=== PATIENT | male | born 2000 | race Caucasian/White ===

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

== ENCOUNTER 2020-09-10 15:23 | Emergency (ER) | payer MEDICAID, SELFPAY ==
[2020-09-10 15:24] VITALS: BP 131/69; PULSE 86; RESP 18; TEMP 36.6; O2SAT 98; BMI 38.9
--- NOTE | 2020-09-10 15:30 | RAD_ITS ---
STUDY: X-RAY - THORACIC SPINE REASON FOR EXAM: Male, 20 years old. back pain TECHNIQUE: 3 view(s) of the thoracic spine were obtained. COMPARISON: None. FINDINGS: Normal kyphosis of the thoracic spine. There is no substantial scoliosis. Normal thoracic vertebrae and endplates. Normal disc space heights. The soft tissue structures are unremarkable. RAD/Thoracic Spine 3 Views IMPRESSION: Normal x-ray examination of the thoracic spine. Electronically Signed: Roman Mack MD at 15:48 EDT Tel , Service support ,
--- NOTE | 2020-09-10 17:28 | EDS_ITS ---
HPI History of Present Illness Chief Complaint: Back Informant: patient Narrative Narrative: Patient states that last evening he stretched in bed. And he had some pain on the right side of his posterior chest. If he stays still is not that bad. But if he moves or twists it hurts. No numbness or tingling. No headache. No trouble breathing. No pleuritic pain. No cough. His only travel in the last 4 or so months is to [facility]. He took one trip there about 2 months ago. He is never had leg pain or swelling. No family history of DVT or PE. No rashes. PFSH PFSH Home Medications albuterol sulfate 2.5 mg INHALATION Q4H PRN PRN #25 vial 07/20/18 [Rx Last Taken Unknown] albuterol sulfate [Proair Hfa (SP)Vent Pts] 1 - 2 puff INHALATION Q4H PRN PRN 07/20/18 [History Last Taken Unknown] prednisone 20 mg PO BID #10 tab 07/20/18 [Rx Last Taken Unknown] naproxen [Naprosyn] 500 mg PO BID PRN #20 tab 09/10/20 [Rx Last Taken Unknown] Allergy/AdvReac Type Severity Reaction Status Date / Time No Known Allergies Allergy Verified 09/10/20 15:27 Social History Smoking Status: Never smoker ROS ROS ED Constitutional Constitutional ED: Denies chills or fever(s) ENT ENT ED: Denies ear pain, rhinorrhea or sore throat Cardiovascular Cardiovascular: Reports chest pain; Denies palpitations or racing heartbeat Respiratory/Chest Respiratory/Chest: Denies dyspnea, dyspnea on exertion or sputum Gastrointestinal Gastrointestinal: Denies abdominal pain, nausea or vomiting Genitourinary Genitourinary ED: Denies hematuria Musculoskeletal Musculoskeletal: Reports back pain; Denies neck pain Integumentary Denies rash Neurologic Neurologic: Denies headache(s), paresthesias or weakness Allergic/Immunologic Allergic/Immunologic ED: Denies urticaria EXAM Physical Exam Const Vital Signs: 09/10/20 15:24 Temperature 97.8 F Temperature Source Temporal Pulse Rate 86 Respiratory Rate 18 Blood Pressure 131/69 H Blood Pressure Mean 89 Pulse Ox 98 Oxygen Delivery Method Room Air Positive well nourished and well developed Constitutional Narrative: Patient is sitting quietly in bed. He is comfortable. General Appearance ED: well developed and NAD HEENT Negative for trauma or tenderness Eyes PERRL Neck no lymphadenopathy and supple Resp normal respiratory effort and No clear to auscultation bilaterally Resp Narrative: Patient's lungs are clear. No pleuritic component. If he moves or twist he has reproduction of pain. Putting his right arm up in the air and twisting his right shoulder forward into his left side reproduces the pain the most. He also has tenderness with palpation along the right paraspinal muscles. Cardio regular rate, regular rhythm and no murmurs GI normal to inspection, nondistended, normoactive bowel sounds, soft to palpation and non-tender Back/Spine normal to inspection General Back: Negative for CVA tenderness Thoracic Spine / Upper Back: paraspinal muscle tenderness Extremity normal to inspection General Extremety ED: Negative for edema or tenderness General Extremity: Negative for edema Psych mental status grossly normal Skin no rashes or lesions noted MDM MDM MDM Narrative Medical decision making narrative: Patient had x-ray of thoracic spine done prior to me seeing him. This is normal. His exam is consistent with a musculoskeletal strain. He is PERC negative. We will get him on nonsteroidals. We discussed the multiple reasons to return including dyspnea cough, hemoptysis, fevers, numbness tingling Radiography Diagnostic Testing: Radiology Impression Thoracic Spine X-Ray 09/10/20 15:30 IMPRESSION: Normal x-ray examination of the thoracic spine. Electronically Signed: Roman Mack MD at 15:48 EDT Tel , Service support , Discharge Plan Triage Chief Complaint: Back ED Provider: Sincere Flores Dx/Rx/DC Orders Clinical Impression: Thoracic myofascial strain Instructions: ED Thoracic Spine Strain Prescriptions: New naproxen [Naprosyn] 500 mg tablet 500 mg PO BID PRN (Reason: pain) Qty: 20 RF: 0 No Action albuterol sulfate [ProAir HFA] 1 PUFF inhaler 1 - 2 puff inhalation Q4H PRN PRN (Reason: Shortness Of Breath) RF: 0 albuterol sulfate 2.5 MG/3 ML solution for nebulization 2.5 mg inhalation Q4H PRN PRN (Reason: Wheezing) Qty: 25 RF: 0 prednisone 20 MG tablet 20 mg PO BID Qty: 10 RF: 0 Primary Care Provider: Froilan Moreno Referrals: Froilan Moreno MD [Primary Care Provider] - 3-5 Days if not improving Disposition Disposition: Home, Self Care
== END 2020-09-10 17:45 | disposition home or self-care (01) ==
PROVIDERS: Emergency Provider Emergency Medicine; PCP Family Medicine
DX: S29.012A Strain of muscle and tendon of back wall of thorax, initial encounter (principal); X58.XXXA Exposure to other specified factors, initial encounter; Y93.89 Activity, other specified; Y92.9 Unspecified place or not applicable; Y99.8 Other external cause status
CPT/HCPCS: 72072; 99282

== ENCOUNTER 2022-08-30 15:58 | Emergency (ER) | payer MEDICAID, SELFPAY ==
[2022-08-30 15:59] VITALS: BP 168/104; PULSE 102; RESP 16; TEMP 36.9; O2SAT 100
--- NOTE | 2022-08-30 16:17 | ED.VIS.DENTA ---
HPI History of Present Illness Chief Complaint: Dental Informant: patient Narrative Narrative: Patient complains of right upper dental pain. Patient states that he had multiple fillings done about 3 weeks ago. He was good for about 2 weeks and now he is having pain. All his pain is in the right upper jaw. No swelling. He does not think he has had a fever but he has felt hot at times. No trouble swallowing. No chest pain or neck pain. He has tried some ibuprofen. He called the dentist that did the work and he has an appointment on the PFS PFS Medical History no medical history Home Medications albuterol sulfate 2.5 mg/3 mL (0.083 %) solution for nebulization 2.5 mg (3 mL) inhalation Q4H PRN PRN Wheezing #25 vials 07/20/18 [Rx Last Taken Unknown] albuterol sulfate 90 mcg/actuation aerosol inhaler (ProAir HFA) 1 - 2 puff inhalation Q4H PRN PRN Shortness Of Breath 07/20/18 [History Last Taken Unknown] prednisone 20 mg tablet 20 mg PO BID #10 tabs 07/20/18 [Rx Last Taken Unknown] naproxen 500 mg tablet (Naprosyn) 500 mg PO BID PRN pain #20 tabs 09/10/20 [Rx Last Taken Unknown] naproxen 500 mg tablet 500 mg PO BID #20 tabs 08/30/22 [Rx Last Taken Unknown] penicillin V potassium 500 mg tablet 500 mg PO 4X/DAY #40 tabs 08/30/22 [Rx Last Taken Unknown] Allergy/AdvReac Type Severity Reaction Status Date / Time No Known Allergies Allergy Verified 08/30/22 16:01 Social History Smoking Status: Never smoker ROS ROS ED Constitutional Constitutional ED: Reports subjective Eyes Eyes: Denies blurry vision ENT ENT ED: Reports other Details: See history of present illness. ; Denies ear pain, rhinorrhea or sore throat Cardiovascular Cardiovascular: Denies chest pain Respiratory/Chest Respiratory/Chest: Denies cough or dyspnea Gastrointestinal Gastrointestinal: Denies nausea or vomiting Musculoskeletal Musculoskeletal: Denies neck pain Integumentary Denies rash Neurologic Neurologic: Denies headache(s) Psychiatric Psychiatric: Reports anxiety and depression Hematologic/Lymphatic Hematologic/Lymphatic: Denies easy bleeding or easy bruising Allergic/Immunologic Allergic/Immunologic ED: Denies urticaria EXAM Physical Exam Narrative Exam Narrative: Patient is awake alert no acute distress sitting comfortably in the bed. Carries on normal conversation. HEENT shows no external erythema swelling or rash. No sinus tenderness. Nasal passages are clear. He has some newer cavities that have been filled. There is mild tenderness of several teeth in the upper jaw. Minimal swelling of the gums but no notable erythema or drainage. No abscess. No sign of Ludewig's angina. Lower jaw floor of the mouth are soft nontender. Neck shows no lymphadenopathy or swelling Lungs are clear bilaterally. Heart is regular. I hear no murmur at all. Distal pulses are normal. Const Vital Signs: 08/30/22 15:59 Temperature 98.5 F Temperature Source Temporal Pulse Rate 102 H Respiratory Rate 16 Blood Pressure 168/104 H Blood Pressure Mean 125 Pulse Ox 100 Oxygen Delivery Method Room Air MDM MDM MDM Narrative Medical decision making narrative: Patient is having pain and its developed a couple weeks after fillings. This may be just a inflammatory response. But I cannot rule out infection. I will start him on antibiotics nonsteroidals until he is seen in approximately 9 days. If he develops swelling pain drainage trouble swallowing he should return. Discharge Plan Triage Chief Complaint: Dental ED Provider: Sincere Flores Dx/Rx/DC Orders Clinical Impression: Pain, dental Instructions: ED Dental Pain Prescriptions: New penicillin V potassium 500 mg tablet 500 mg PO 4X/DAY Qty: 40 0RF naproxen 500 mg tablet 500 mg PO BID Qty: 20 0RF No Action albuterol sulfate [ProAir HFA] 1 PUFF inhaler 1 - 2 puff inhalation Q4H PRN PRN (Reason: Shortness Of Breath) albuterol sulfate 2.5 MG/3 ML solution for nebulization 2.5 mg inhalation Q4H PRN PRN (Reason: Wheezing) Qty: 25 0RF prednisone 20 MG tablet 20 mg PO BID Qty: 10 0RF Rx Instructions: With food naproxen [Naprosyn] 500 mg tablet 500 mg PO BID PRN (Reason: pain) Qty: 20 0RF Primary Care Provider: Froilan Moreno Referrals: Froilan Moreno MD [Primary Care Provider] - As Needed Activity Restrictions/Additional Instructions: See your dentist as soon as possible. Disposition Disposition: Home, Self Care
== END 2022-08-30 16:33 | disposition home or self-care (01) ==
LOC: ED 16:29
PROVIDERS: Emergency Provider Emergency Medicine; PCP Family Medicine; Visit Provider Emergency Medicine
DX: K08.89 Other specified disorders of teeth and supporting structures (principal)
CPT/HCPCS: 99282

== ENCOUNTER 2023-03-28 12:35 | Emergency (ER) | payer MEDICAID, SELFPAY ==
[2023-03-28 12:36] VITALS: BP 147/80; PULSE 104; RESP 20; TEMP 37.2; O2SAT 100; BMI 44.1
--- NOTE | 2023-03-28 13:11 | CT_ITS ---
HISTORY: Pain TECHNIQUE: Helically acquired images were obtained of the abdomen and pelvis without oral or IV contrast. A radiation dose optimization technique was used for this scan. 539 images. COMPARISON: None.. FINDINGS: LOWER CHEST: Lung bases clear. BOWEL: Bowel including appendix nondilated. No focal pericolonic inflammatory change. PERITONEUM: No significant free fluid. LIVER: Fatty infiltration. GALLBLADDER/BILIARY TREE: Gallbladder present. SPLEEN/PANCREAS/ADRENAL GLANDS: Nonenlarged. KIDNEYS AND URETERS: Very mild left hydroureteronephrosis secondary to a 1 mm ureterovesical junction calculus. No right nephrolithiasis or hydronephrosis. VESSELS: Abdominal aorta nondilated. PELVIC ORGANS: Unremarkable. BONES: Intact. CT/Abdomen/Pelvis without Cont IMPRESSION: Very mild left hydronephrosis secondary to a 1 mm UVJ calculus. Hepatic steatosis. Electronically Signed: Linda Aguilar MD at 14:31 EST ,
[2023-03-28] MEDS: 0.9% Normal Saline (1000mL) 1,000 ML 1000 ML IV (13:19)
[2023-03-28] MEDS: Ondansetron 4 MG/2 ML Vial IV (13:22)
[2023-03-28] MEDS: Morphine 4 MG/ML Syringe IV (13:22)
[2023-03-28] MEDS: Ketorolac 15 MG/ML Vial IV (13:22)
[2023-03-28 13:32] LABS: Absolute Lymphocyte Count 1.97 X10^3/uL (0.83-4.51); Absolute Neutrophil Count 7.7 X10^3/uL (2.0-7.7); Basophil# 0.05 X10^3/uL; Basophil% 0.5 % (0-1); Eosinophil# 0.12 X10^3/uL; Eosinophils% 1.1 % (0-5); Hematocrit 46.2 % (40-54); Hemoglobin 15.4 g/dL (13.0-16.5); Lymphocyte # 1.97 X10^3/ul (0.83-4.51); Lymphocyte % 18.8 % (19-41); Mean Corp Hgb Conc 33.3 g/dL (32-36); Mean Corpuscular Hgb 28.1 pg (27.0-32.0); Mean Corpuscular Volume 84.3 fL (80-94); Monocyte# 0.55 X10^3/uL; Monocyte% 5.3 % (0-10); NRBC Flagged by Analyzer 0 % (0-5); Neutrophil # 7.71 X10^3/uL (2.7-7.7); Neutrophil % 73.6 % (47-70); Platelet Count 286 K/mm3 (150-450); RBC Distribution Width CV 12.6 % (11.6-14.6); RBC Distribution Width SD 38.5 fl (35.1-43.9); Red Blood Count 5.48 M/mm3 (4.6-6.2); White Blood Count 10.5 K/mm3 (4.4-11.0)
[2023-03-28 13:49] LABS: ALB/GLOB Ratio 0.9 RATIO (0.9-2.4); AST(SGOT) 58 U/L (15-37); Alanine Aminotransfer ALT/SGPT 100 U/L (16-61); Alkaline Phosphatase 92 U/L (45-117); Anion Gap 6 (5-15); BUN 12 mg/dL (7-18); BUN/Creat Ratio 10.4 RATIO (10-20); Calcium,Total 9.4 mg/dL (8.5-10.1); Chloride 105 mmol/L (98-107); Creatinine, Serum 1.15 mg/dL (0.70-1.30); EST Glomerular Filtration Rate 84 mL/min (>60); Est Glom Filt Rate - Afr Amer 101 mL/min (>60); Globulin 4.3 g/dL (2.2-4.2); Glucose 144 mg/dL (74-106); Lipase 33 U/L (13-75); Potassium 3.7 mmol/L (3.5-5.1); Protein, Total 8.3 g/dL (6.4-8.2); Sodium Level 141 mmol/L (136-145)
--- NOTE | 2023-03-28 14:01 | EX.ED.DYSGE1 ---
HPI <LAURA Alaniz - Last Filed: 03/28/23 15:02> History of Present Illness Chief Complaint: Abd Pain Narrative Narrative: Patient is a 23-year-old male with history of anxiety, depression who presents to the the [facility] apartment with sudden onset of left-sided flank pain. Patient states this woke him up at approximate 930 this morning. He states he has pressure like he has to pee however nothing comes out. He states that the pain is worse when he standing still. He complains of nausea and vomiting. Denies any fever or chills. Patient states he has no history of kidney stone or pain like this before PFSH <LAURA Alaniz - Last Filed: 03/28/23 15:02> [facility] Medical History no medical history Home Medications albuterol sulfate 2.5 mg/3 mL (0.083 %) solution for nebulization 2.5 mg (3 mL) inhalation Q4H PRN PRN Wheezing #25 vials 07/20/18 [Rx Last Taken Unknown] albuterol sulfate 90 mcg/actuation aerosol inhaler (ProAir HFA) 1 - 2 puff inhalation Q4H PRN PRN Shortness Of Breath 07/20/18 [History Last Taken Unknown] prednisone 20 mg tablet 20 mg PO BID #10 tabs 07/20/18 [Rx Last Taken Unknown] naproxen 500 mg tablet (Naprosyn) 500 mg PO BID PRN pain #20 tabs 09/10/20 [Rx Last Taken Unknown] naproxen 500 mg tablet 500 mg PO BID #20 tabs 08/30/22 [Rx Last Taken Unknown] penicillin V potassium 500 mg tablet 500 mg PO 4X/DAY #40 tabs 08/30/22 [Rx Last Taken Unknown] oxycodone-acetaminophen 5 mg-325 mg tablet (Percocet) 1 tab PO Q4H PRN pain 2 days #7 tabs 03/28/23 [Rx Last Taken Unknown] Allergy/AdvReac Type Severity Reaction Status Date / Time No Known Allergies Allergy Verified 03/28/23 12:36 Social History Smoking Status: Never smoker ROS <LAURA Alaniz - Last Filed: 03/28/23 15:02> ROS ED ROS Narrative Constitutional: No fever, no chills. HEENT: No sore throat. No neck pain. No loss of vision. No rhinorrhea. Cardiovascular: No chest pain. No palpitations. No pedal edema. Respiratory: No cough, no shortness of breath. Abdominal: Positive for left-sided flank pain that wraps around the left abdomen. No nausea. No vomiting. Genitourinary: Positive some dysuria. No hematuria. Musculoskeletal: No myalgias. No arthralgias. Neurologic: No headaches. No dizziness. No lightheadedness. Skin: No rash. No change in color. Psychiatric: No depression. No anxiety. EXAM <LAURA Alaniz - Last Filed: 03/28/23 15:02> Physical Exam Narrative Exam Narrative: Patient appears to be in mild distress secondary to pain to the left flank Afebrile. Vital signs noted. HEENT: Normocephalic. Atraumatic. PERRL, EOMI. Neck soft and supple. No point tenderness or step off. Cardiovascular: Regular rate and rhythm. No murmurs, rubs, or gallops appreciated. Respiratory: No tachypnea. Lungs clear to auscultation bilaterally. Gastrointestinal: Abdomen soft, nontender, with normoactive bowel sounds. No rebound or guarding. Neurological: Awake. Alert. Nonfocal, nonlateralizing. Skin: No rash. Normal color. No pallor. Musculoskeletal: No pedal edema. Full range of motion extremities. Const Vital Signs: 03/28/23 12:36 Temperature 99 F Temperature Source Temporal Pulse Rate 104 H Respiratory Rate 20 H Blood Pressure 147/80 H Blood Pressure Mean 102 Pulse Ox 100 Oxygen Delivery Method Room Air Positive well nourished <Dr. Gonzalo Cornejo MD - Last Filed: 03/28/23 14:18> Physical Exam Const Vital Signs: 03/28/23 12:36 Temperature 99 F Temperature Source Temporal Pulse Rate 104 H Respiratory Rate 20 H Blood Pressure 147/80 H Blood Pressure Mean 102 Pulse Ox 100 Oxygen Delivery Method Room Air MDM <LAURA Alaniz - Last Filed: 03/28/23 15:02> [facility] Lab Data Labs: Laboratory Results - last 24 hr 03/28/23 03/28/23 13:24 14:07 WBC 10.5 RBC 5.48 Hgb 15.4 Hct 46.2 MCV 84.3 MCH 28.1 MCHC 33.3 RDW Std Deviation 38.5 RDW Coeff of Bailee 12.6 Plt Count 286 MPV 9.0 Immature Gran % (Auto) 0.700 Neut % (Auto) 73.6 H Lymph % (Auto) 18.8 L Deuel % (Auto) 5.3 Eos % (Auto) 1.1 Baso % (Auto) 0.5 Absolute Neuts (auto) 7.7 Absolute Lymphs (auto) 1.97 Nucleated RBC % 0 Sodium 141 Potassium 3.7 Chloride 105 Carbon Dioxide 30.0 Anion Gap 6 BUN 12 Creatinine 1.15 Estim Creat Clear Calc 140.80 Est GFR (MDRD) Af Amer 101 Est GFR (MDRD) Non-Af 84 BUN/Creatinine Ratio 10.4 Glucose 144 H Calcium 9.4 Total Bilirubin 0.40 AST 58 H ALT 100 H Alkaline Phosphatase 92 Total Protein 8.3 H Albumin 4.0 Globulin 4.3 H Albumin/Globulin Ratio 0.9 Lipase 33 Urine Color Yellow Urine Clarity Sl. Cloudy Urine pH 7.0 Ur Specific [place] 1.010 Urine Protein 15 H Urine Glucose (UA) Normal Urine Ketones 5 H Urine Occult Blood 25 H Urine Nitrite Negative Urine Bilirubin Negative Urine Urobilinogen 1 H Ur Leukocyte Esterase 25 H Urine RBC 0-5 SEEN Urine WBC 0-5 SEEN Ur Squamous Epith Cells 0-5 SEEN Urine Bacteria 1+ Urine Mucus 2+ Radiography Diagnostic Testing: Clinical Impression(s) from Imaging Studies Abdomen/Pelvis CT 03/28/23 13:11 IMPRESSION: Very mild left hydronephrosis secondary to a 1 mm UVJ calculus. Hepatic steatosis. Electronically Signed: Linda Aguilar MD at 14:31 EST , Treatment and Re-Evaluation :: Patient appears to be in mild to moderate discomfort secondary to flank pain on the left side. This does radiate to his left abdomen. Differential diagnose includes obstructing uropathy, gastroenteritis, thoracic strain. Patient will receive a workup concerning for a obstructing uropathy. Patient received a CT scan of the abdomen pelvis without contrast. Patient was seen some basic laboratory values as well as urinalysis. The radiology exams ordered for this patient will be read by the emergency department attending. From these reads a plan of care will be put into place. CBC was unremarkable, chemistries were unremarkable, lipase was negative. Patient's symptoms are much improved after IV pain medicine. Patient looks well appearing. CT scan showed a very mild left hydronephrosis secondary to a 1 mm UVJ calculus. Hepatic steatosis. At this time, patient will be discharged home with obstructive uropathy. It is a small 1 mm stone, this should pass. Patient has no signs or symptoms of infection urinalysis unremarkable. Patient feels much better. Patient given some pain medicine for home. Instructed return for any worsening symptoms, patient stable for discharge. <Dr. Gonzalo Cornejo MD - Last Filed: 03/28/23 14:18> [facility] MDM Narrative Medical decision making narrative: I have personally performed a face to face assessment of the patient and have reviewed the T[place] Note. I performed a substantive portion of the visit including all aspects of the following. My william findings include: History is [20-year-old male with left flank pain rating to his left groin today. No fever or chills. No dysuria hematuria no history of kidney stones. No prior abdominal surgeries. No trauma.] Exam is [see below.] Medical Decision Making [well-appearing 23-year-old male vital signs stable afebrile. H EENT exam unremarkable. Lungs clear. Heart regular rhythm no murmur. Rate about 100. Abdomen soft, nondistended normal bowel sounds without peritoneal signs. External exam unremarkable. Bilateral descended testicles. No swelling. No mass. No hernia. Moving all 4 extremities. Back nontender. Neurologically is awake and alert.] Other additions or changes: [23-year-old male concern is left flank pain maybe a kidney stone CAT scan labs are pending.] Lab Data Attestation: I reviewed the patient's lab results. Lab results narrative: CBC normal. White count of 10. H&H 15 and 46. Platelets 286. Electrolytes unremarkable gap 6. Normal BUN and creatinine. Glucose 144. Liver enzymes slightly elevated AST, ALT. Lipase normal at 33. Labs: Laboratory Results - last 24 hr 03/28/23 03/28/23 13:24 14:07 WBC 10.5 RBC 5.48 Hgb 15.4 Hct 46.2 MCV 84.3 MCH 28.1 MCHC 33.3 RDW Std Deviation 38.5 RDW Coeff of Bailee 12.6 Plt Count 286 MPV 9.0 Immature Gran % (Auto) 0.700 Neut % (Auto) 73.6 H Lymph % (Auto) 18.8 L Deuel % (Auto) 5.3 Eos % (Auto) 1.1 Baso % (Auto) 0.5 Absolute Neuts (auto) 7.7 Absolute Lymphs (auto) 1.97 Nucleated RBC % 0 Sodium 141 Potassium 3.7 Chloride 105 Carbon Dioxide 30.0 Anion Gap 6 BUN 12 Creatinine 1.15 Estim Creat Clear Calc 140.80 Est GFR (MDRD) Af Amer 101 Est GFR (MDRD) Non-Af 84 BUN/Creatinine Ratio 10.4 Glucose 144 H Calcium 9.4 Total Bilirubin 0.40 AST 58 H ALT 100 H Alkaline Phosphatase 92 Total Protein 8.3 H Albumin 4.0 Globulin 4.3 H Albumin/Globulin Ratio 0.9 Lipase 33 Urine Color Yellow Urine Clarity Sl. Cloudy Urine pH 7.0 Ur Specific [place] 1.010 Urine Protein 15 H Urine Glucose (UA) Normal Urine Ketones 5 H Urine Occult Blood 25 H Urine Nitrite Negative Urine Bilirubin Negative Urine Urobilinogen 1 H Ur Leukocyte Esterase 25 H Urine RBC 0-5 SEEN Urine WBC 0-5 SEEN Ur Squamous Epith Cells 0-5 SEEN Urine Bacteria 1+ Urine Mucus 2+ Radiography Diagnostic Testing: Clinical Impression(s) from Imaging Studies Abdomen/Pelvis CT 03/28/23 13:11 IMPRESSION: Very mild left hydronephrosis secondary to a 1 mm UVJ calculus. Hepatic steatosis. Electronically Signed: Linda Aguilar MD at 14:31 EST , Discharge Plan Triage Chief Complaint: Abd Pain ED Midlevel Provider: Yuri Newell ED Provider: Gonzalo Cornejo Dx/Rx/DC Orders Clinical Impression: Kidney stone on left side Instructions: ED Kidney Stone with Pain Prescriptions: New oxycodone-acetaminophen [Percocet] 5-325 mg tablet 1 tab PO Q4H PRN (Reason: pain) 2 Days Qty: 7 0RF No Action albuterol sulfate [ProAir HFA] 1 PUFF inhaler 1 - 2 puff inhalation Q4H PRN PRN (Reason: Shortness Of Breath) albuterol sulfate 2.5 MG/3 ML solution for nebulization 2.5 mg inhalation Q4H PRN PRN (Reason: Wheezing) Qty: 25 0RF prednisone 20 MG tablet 20 mg PO BID Qty: 10 0RF Rx Instructions: With food naproxen [Naprosyn] 500 mg tablet 500 mg PO BID PRN (Reason: pain) Qty: 20 0RF penicillin V potassium 500 mg tablet 500 mg PO 4X/DAY Qty: 40 0RF naproxen 500 mg tablet 500 mg PO BID Qty: 20 0RF Primary Care Provider: Froilan Moreno Referrals: Froilan Moreno MD [Primary Care Provider] - As Needed Activity Restrictions/Additional Instructions: Motrin and Tylenol for pain. Plenty of fluids. Percocet for more severe pain. Follow-up with your doctor if not improving or return if worse. You have a 1 mm Kidney stone on the left that should pass easily. Disposition Disposition: Home, Self Care
[2023-03-28 14:13] LABS: Color, Urine Yellow (Yellow); Glucose, Dipstick Normal (Normal); Ketone-Dipstick 5 mg/dl (Negative); Leukocyte Esterase-Dipstick 25 /ul (Negative); Nitrite-Dipstick Negative (Negative); Occult Blood-Urine 25 /ul (Negative); Protein-Dipstick 15 mg/dl (Negative); Urine Bilirubin Dipstick Negative (Negative); Urine Clarity Sl. Cloudy (Clear); Urine Urobilinogen 1 mg/dl (Normal)
[2023-03-28 14:31] LABS: Bacteria 1+ /hpf (None Seen); Mucous, Urine 2+ /hpf (<or=2+); Red Blood Cells-Urine 0-5 SEEN /hpf (0-5); Squamous Epithelial Cells - UA 0-5 SEEN /hpf (0-5); White Blood Cells 0-5 SEEN /hpf (0-5)
[2023-03-28 15:07] VITALS: PULSE 74; RESP 14; O2SAT 97
== END 2023-03-28 15:08 | disposition home or self-care (01) ==
PROVIDERS: Nurse Practitioner; Emergency Provider Emergency Medicine; PCP Family Medicine; Visit Provider Emergency Medicine
DX: N13.2 Hydronephrosis with renal and ureteral calculous obstruction (principal)
CPT/HCPCS: 74176; 80053; 81001; 83690; 85025; 96361; 96374; 96375; 99283; J7030; A4216; J2405